=== PATIENT | female | born 2000 | race Caucasian/White ===

== ENCOUNTER 2024-08-29 21:29 | Emergency (ER) | payer BC ==
[~2024-08-29] VITALS: Ht 157.5 cm; Wt 60.0 kg
[2024-08-29] MEDS ORDERED: SODIUM CHLORIDE 0.9% 500 ML IV ONE (21:45)
[2024-08-29 21:54] LABS: BASOPHILS 0.7 % (0-2); EOSINOPHILS 3.3 % (0-6); HEMATOCRIT 40.7 % (35.0-50.0); HEMOGLOBIN 14.6 g/dL (12.0-18.0); LYMPHOCYTES 19.9 % (24-44); MCH 30.1 (27-36); MCHC 35.9 g/dl (30-36); MCV 83.8 fl (81-99); MONOCYTES 13.8 % (0-12); NEUTROPHILS 62.3 % (39-80); PLATELET COUNT 304 K/uL (140-440); RBC 4.85 M/ul (4.3-5.7); RDW 12.5 (10.5-15.0)
[2024-08-29] MEDS ORDERED: SODIUM CHLORIDE 0.9% 1,000 ML IV PRN (22:00)
[2024-08-29 22:02] LABS: BILIRUBIN, URINE NEGATIVE (negative); BLOOD/HGB, URINE NEGATIVE (Negative); KETONE, URINE >=80 (Negative); LEUK ESTERASE, URINE NEGATIVE (negative); NITRITE, URINE NEGATIVE (negative)
[2024-08-29 22:23] LABS: ALBUMIN 3.5 g/dL (3.4-5.0); ALBUMIN/GLOBULIN RATIO 0.95 (1.1-2.4); ANION GAP 13.5 (7-21); BILIRUBIN, TOTAL 0.7 mg/dL (0.2-1.0); BUN/CREATININE RATIO 6.3 (6.0-28.6); CALCIUM 8.6 mg/dL (8.5-10.1); CREATININE, SERUM 1.11 mg/dL (0.55-1.02); POTASSIUM 3.5 mmol/L (3.5-5.1); PROTEIN, TOTAL 7.2 g/dL (6.4-8.2)
[2024-08-29] MEDS ORDERED: SODIUM CHLORIDE 0.9% 1,000 ML IV SCH (23:15)
[2024-08-29] MEDS ORDERED: ONDANSETRON ODT8 MG PO (23:35)
[2024-08-29] MEDS ORDERED: ONDANSETRON 4 MG HOME.PACK SL ONE (23:45)
[2024-08-30 00:01] VITALS: BP 126/79
[2024-08-30] MEDS ORDERED: DIFICID200 MG PO (05:39)
== END 2024-08-30 00:08 | disposition home or self-care (01) ==
LOC: ED 21:29
PROVIDERS: Emergency Medicine
DX: R19.7 Diarrhea, unspecified (principal)
CPT/HCPCS: 36415; 80053; 81003; 83735; 84703; 85025; 87045; 87046; 87324; 96360; 99284-25; A9270; J7030